=== PATIENT | male | born 1960 | race Caucasian/White ===

== ENCOUNTER → 2024-12-03 10:03 | Outpatient (BNVA) | payer MEDICARE, OTHER, SELFPAY | PROVIDERS: PCP Nurse Practitioner Family; Visit Provider Podiatrist Foot & Ankle Surgery | DX: M79.672 Pain in left foot (principal); M25.572 Pain in left ankle and joints of left foot; S92.425A Nondisplaced fracture of distal phalanx of left great toe, initial encounter for closed fracture; S92.415A Nondisplaced fracture of proximal phalanx of left great toe, initial encounter for closed fracture; S92.412A Displaced fracture of proximal phalanx of left great toe, initial encounter for closed fracture; W18.49XA Other slipping, tripping and stumbling without falling, initial encounter | CPT/HCPCS: 73600; 73630; 99204 ==

== ENCOUNTER → 2024-12-17 11:34 | Outpatient (BNVA) | payer MEDICARE, OTHER, SELFPAY | PROVIDERS: PCP Nurse Practitioner Family; Visit Provider Podiatrist Foot & Ankle Surgery | DX: S92.415A Nondisplaced fracture of proximal phalanx of left great toe, initial encounter for closed fracture (principal); S92.425A Nondisplaced fracture of distal phalanx of left great toe, initial encounter for closed fracture; W18.49XA Other slipping, tripping and stumbling without falling, initial encounter | CPT/HCPCS: 73630; 99213 ==